=== PATIENT | female | born 1975 | race African-American/Black ===

== ENCOUNTER 2016-08-24 14:46 | Emergency (ER) | payer OTHER ==
[~2016-08-24 14:46] MED LIST: ACYCLOVIR; ADVAIR230P INH; ADVAIR250 INH; ALBUTEROL NEB; APRES10B PO; ASAB PO; AZO YEAST; B12; B121000P IM; BACLOFEN20 MG PO; BUSPAR15 M1 PO; BUSPAR15 MG PO; BUSPAR30 MG PO; BYETTA 10 MCG; BYETTA SC; BYETTA10 SC; BYSTOLIC10 MG PO; CALCIUM CHEW; CALTRA600D PO; CARDCD180 PO; CAT2 PO; CAT3 PO; CLOMID50 MG OR; COREG25 PO; COREG3 PO; CRESTOR10 PO; CRESTOR20 MG PO; CYANO1000T IM; DEMA20 PO; DEPAKOTEER PO; DEXAMETHASON1 MG PO; DILT-XR240 MG PO; DURA50 TOP; DURA75 TOP; EFFEX75 PO; EPIPEN0.3 IM; FLEX PO; FLUCON150 PO; GABARONE300 MG PO; GLUCOPHAGE1000 MG PO; IRON325 MG PO; ISOPTIN SR240 MG PO; KLONO1 PO; KLOR-CON M2020 MEQ PO; KLOR-CON20 MEQ PO; LANTUS SC; LEVSINTAB PO; LORT7 PO; MAGOX4 PO; METROGEL1 % TOP; MULTIPLE VIT PO; MULTIVITAMIN; NEUR300 PO; NITRO SPRAY; P10 PO; P5 PO; PAX20 PO; PERCOCET1 TA4 PO; PHENERGAN25 MG/ML PO; PLAQ200B PO; PR25 PO; PR25R PR; PRENATAL MVI; PREV30 PO; PRISTIQ100 MG PO; PROAIR HFA INH; PROTONIX PO; PROVHFA INH; PROZAC40 MG PO; RESTORIL30 MG PO; RETIN-A0.1 % EX; SAVELLA100 MG PO; SOMATAB PO; SPIRO25 PO; SPRINTEC 2828 DAY PO; SUCR PO; TARKA1 TA1 OR; TEKTURNA300 MG PO; TORA60 IM; TRAN200 PO; TYLENOL PM PO; TYLENOL PRN; ULTRAM50 PO; VENTOLIN 90MCG; VERELAN240 MG PO; VERELAN360 MG PO; VIT D3; VITAMIN B-121000 MC1 SL; VITAMIN D31000 UNIT PO; ZOFRAN4 PO; ZOVIRAX400 MG PO; [UNRECOGNIZED DRUG - CODE] IM; [UNRECOGNIZED DRUG - OTHER]; [UNRECOGNIZED DRUG - OTHER]; [UNRECOGNIZED DRUG - OTHER]; [UNRECOGNIZED DRUG - OTHER]; [UNRECOGNIZED DRUG - OTHER]; [UNRECOGNIZED DRUG - OTHER]; [UNRECOGNIZED DRUG - OTHER]; [UNRECOGNIZED DRUG - OTHER] PO; [UNRECOGNIZED DRUG - REMARK]
[2016-08-24 15:29] LABS: BASOPHILS 0.5 %; BASOPHILS ABSOLUTE 0.06 10/3/uL (0.0-0.16); EOSINOPHILS 0.8 %; EOSINOPHILS ABSOLUTE 0.09 10/3/uL (0.0-0.53); ER CBC TAT 0 Hrs 07 Mins; HEMOGLOBIN 9.2 g/dL (12.0-16.0); IMMATURE GRANULOCYTES 0.3 %; IMMATURE GRANULOCYTES ABSOLUTE 0.03 10/3/uL (0.0-0.11); LYMPHOCYTES 14.2 %; LYMPHOCYTES ABSOLUTE 1.58 10/3/uL (0.67-4.30); MEAN CORPUS HGB CONC 31.3 g/dL (32.0-36.0); MEAN CORPUSCULAR HEMOGLOB 25.6 pg (26.0-34.0); MEAN PLATELET VOLUME 8.4 fL (9.2-13.0); MONOCYTES 6.7 %; MONOCYTES ABSOLUTE 0.74 10/3/uL (0.21-1.20); NEUTROPHILS 77.5 %; PLATELET COUNT 556 10/3/uL (150-400); WHITE BLOOD CELLS 11.1 10/3/uL (4.5-10.5)
[2016-08-24 15:30] LABS: HEMATOCRIT 29.4 % (36.0-48.0); MANUAL DIFF NO %; MEAN CORPUSCULAR VOLUME 81.7 fL (80-100)
[2016-08-24 15:39] LABS: PARTIAL THROMBO TIME 31.6 SEC (22.5-37.2)
[2016-08-24 15:45] LABS: BUN (BLOOD UREA NITROGEN) 10 MG/DL (6-23); CALCIUM, SERUM 8.4 MG/DL (8.5-10.4); CHEST PAIN PROFILE TAT 0 Hrs 23 Mins; CHLORIDE, SERUM 106 MMOL/L (96-112); CO2 (CARBON DIOXIDE) 27 MMOL/L (24-34); CREATININE 0.82 MG/DL (0.55-1.02); GFR AFRICAN AMERICAN 102 ML/MIN (>=60); GFR NON AFRICAN AMERICAN 88 ML/MIN (>=60); POTASSIUM, SERUM 4.2 MMOL/L (3.5-5.3); SODIUM, SERUM 140 MMOL/L (135-148); TROPONIN I <0.02 NG/ML (<0.05)
[2016-08-24 15:46] LABS: GLUCOSE, SERUM 85 MG/DL (60-99)
[2016-08-24 18:47] LABS: ASCORBIC ACID (UR NOT ORDER) NEG (NEG); BILIRUBIN, URINE NEGATIVE (NEG); ER URINALYSIS TAT 0 Hrs 20 Mins; KETONE, URINE NEGATIVE (NEG); LEUKOCYTE ESTERASE(NOT OR NEG (NEG); NITRITE (URINE) NEG (NEG); WBC (NOT ORDERED) (RFLEX) < 1 (0-5)
== END 2016-08-24 19:20 | disposition home or self-care (01) ==
LOC: ER 14:46
PROVIDERS: Emergency Medicine; Nurse Practitioner Family
DX: R60.0 Localized edema (principal); D64.9 Anemia, unspecified; R07.9 Chest pain, unspecified; Z87.01 Personal history of pneumonia (recurrent); I13.0 Hypertensive heart and chronic kidney disease with heart failure and stage 1 through stage 4 chronic kidney disease, or unspecified chronic kidney disease; E11.22 Type 2 diabetes mellitus with diabetic chronic kidney disease; J45.909 Unspecified asthma, uncomplicated; I25.2 Old myocardial infarction; F41.9 Anxiety disorder, unspecified; I50.9 Heart failure, unspecified; Z98.84 Bariatric surgery status; E87.6 Hypokalemia; Z88.8 Allergy status to other drugs, medicaments and biological substances; Z91.040 Latex allergy status; Z91.048 Other nonmedicinal substance allergy status; Z79.899 Other long term (current) drug therapy; Z79.52 Long term (current) use of systemic steroids; Z79.82 Long term (current) use of aspirin
CPT/HCPCS: 71020; 80048; 81001; 83735; 83880; 84484; 85025; 85610; 85730; 93005; 99284